=== PATIENT | male | born 1980 | race Caucasian/White ===

== ENCOUNTER 2016-07-04 17:57 | Emergency (ER) | payer SELFPAY ==
[~2016-07-04] VITALS: Ht 188 cm; Wt 86.2 kg
[2016-07-04] MEDS ORDERED: ONDANSETRON HCL/PF 4 MG/2 ML VIAL ONE (18:29)
[2016-07-04] MEDS ORDERED: IV SET PRIMARY 1 EA INFUS.SET MC ONE (18:29)
[2016-07-04] MEDS ORDERED: IV NS 0.9% 1,000 ML ONE (18:29)
[2016-07-04] MEDS ORDERED: ONDANSETRON HCL/PF 4 MG/2 ML VIAL IVP ONE (18:30)
[2016-07-04] MEDS ORDERED: IV NS 0.9% 1,000 ML BAG IV ONE (18:30)
[2016-07-04 18:34] LABS: BASOPHILS # (AUTO) 0.1 /CMM (0.0-0.2); BASOPHILS % (AUTO) 0.5 % (0.0-2.0); DIFF TOTAL % 100 %; EOSINOPHILS # (AUTO) 0.2 /CMM (0.0-0.7); EOSINOPHILS % (AUTO) 1.9 % (0.0-6.0); HEMATOCRIT 53 % (39-51); HEMOGLOBIN 17.8 g/dL (13.5-17.5); LYMPHOCYTES # (AUTO) 3.1 /CMM (0.8-4.8); LYMPHOCYTES % (AUTO) 27.2 % (20.0-44.0); MEAN CORPUSCULAR HEMOGLOBIN 31 PG (26.0-33.0); MEAN CORPUSCULAR HGB CONC 34 g/dl (31.0-36.0); MEAN CORPUSCULAR VOLUME 91 fL (80-96); MONOCYTES # (AUTO) 0.8 /CMM (0.1-1.30); MONOCYTES % (AUTO) 7.2 % (2.0-12.0); NEUTROPHILS # (AUTO) 7.1 /CMM (1.8-8.9); NEUTROPHILS % (AUTO) 63.2 % (43.0-81.0); PLATELET COUNT (AUTO) 274 /CMM (150-450); RED BLOOD CELL COUNT(AUTO) 5.77 MIL/uL (4.5-6.0); WHITE BLOOD COUNT (AUTO) 11.3 K/uL (4.3-11.0)
[2016-07-04 18:48] LABS: ALBUMIN 4.8 g/dL (3.4-5.0); BILIRUBIN,DIRECT 0.1 mg/dL (0.0-0.2); BILIRUBIN,TOTAL 0.7 mg/dL (0.2-1.0); CALCIUM, SERUM 9.1 mg/dL (8.5-10.1); CREATININE 1.3 mg/dL (0.6-1.3); INDIRECT BILIRUBIN 0.6 mg/dL (0.0-1.1); POTASSIUM 3.7 mmol/L (3.5-5.1); TOTAL PROTEIN, SERUM 8.5 g/dL (6.4-8.2)
[2016-07-04 18:51] LABS: CANNABINOID, URINE NEGATIVE (NEGATIVE); PHENCYCLIDINE SCREEN,URINE NEGATIVE (NEGATIVE)
[2016-07-04 19:15] LABS: BAND % (MANUAL) 2 % (0.0-5.0); BASOPHILS % (MANUAL) 0 % (0.0-2.0); EOSINOPHILS % (MANUAL) 0 % (0-4); LYMPHOCYTES % (MANUAL) 32 % (16-48)
[2016-07-04 19:16] LABS: PLATELET ESTIMATE ADEQUATE; RBC MORPHOLOGY COMMENT NORMAL RBC MORPH
[2016-07-04 19:27] VITALS: BP 132/76
== END 2016-07-04 19:28 | disposition home or self-care (01) ==
LOC: ER 17:59
DX: F10.129 Alcohol abuse with intoxication, unspecified (principal)
CPT/HCPCS: 36415; 80048; 80076; 80305; 83690; 85025; 96374; 99284; A4606; G0481; J2405; J7030; Z7610; G6040-TC

== ENCOUNTER 2018-06-10 14:06 | Emergency (ER) | payer OTHER ==
[~2018-06-10] VITALS: Ht 182.9 cm; Wt 92.5 kg
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
[2018-06-10] MEDS ORDERED: KETOROLAC TROMETHAMINE 15 MG/ML VIAL ONE (14:44)
[2018-06-10] MEDS: KETOROLAC TROMETHAMINE INJ 30 MG/ML VIAL IM ONE (14:51)
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
--- NOTE | 2018-06-10 15:12 | NUR ---
ASTER, EMT AT BEDSIDE FOR WOUND CARE
--- NOTE | 2018-06-10 15:14 | NUR ---
PHLEB AT BEDSIDE
[2018-06-10] MEDS ORDERED: SILVER SULFADIAZINE CREAM 25 GM TUBE ONE (15:15)
[2018-06-10 15:23] LABS: BASOPHILS # (AUTO) 0.1 /CMM (0.0-0.2); BASOPHILS % (AUTO) 1.5 % (0.0-2.0); EOSINOPHILS % (AUTO) 4.2 % (0.0-6.0); HEMATOCRIT 54 % (39-51); HEMOGLOBIN 18.3 g/dL (13.5-17.5); MEAN CORPUSCULAR HGB CONC 34 g/dl (31.0-36.0); MEAN CORPUSCULAR VOLUME 95 fL (80-96); MONOCYTES # (AUTO) 0.5 /CMM (0.1-1.30); MONOCYTES % (AUTO) 6.1 % (2.0-12.0); NEUTROPHILS # (AUTO) 4.7 /CMM (1.8-8.9); NEUTROPHILS % (AUTO) 54.2 % (43.0-81.0); PLATELET COUNT (AUTO) 265 /CMM (150-450); WHITE BLOOD COUNT (AUTO) 8.7 K/uL (4.3-11.0)
[2018-06-10 15:41] LABS: CALCIUM, SERUM 9.2 mg/dL (8.5-10.1); CREATININE 0.9 mg/dL (0.6-1.3); POTASSIUM 4.1 mmol/L (3.5-5.1)
--- NOTE | 2018-06-10 15:42 | NUR ---
Dawit hines in [facility] - 06/10/18 at 1548 by POL[employer] DATA PROCESSING CONSULTANT ETA 45MIN FOR PSYCH EVAL.
--- NOTE | 2018-06-10 15:44 | NUR ---
JAILYN MANSFIELD AT BEDSIDE FOR STRAIGHT CATH. PT REQUESTED TO NOT HAVE FEMALE NURSE
[2018-06-10 15:59] LABS: ALBUMIN 5.1 g/dL (3.4-5.0); BILIRUBIN,DIRECT 0.1 mg/dL (0.0-0.2); BILIRUBIN,TOTAL 0.5 mg/dL (0.2-1.0); TOTAL PROTEIN, SERUM 8.9 g/dL (6.4-8.2)
--- NOTE | 2018-06-10 16:03 | NUR ---
RESTRAINTS D/C'D. CMS INTACT
--- NOTE | 2018-06-10 17:07 | NUR ---
IV removed. Catheter intact and site benign. Pressure and 4x4 applied to site. No bleeding noted. Patient discharged to home in stable condition. Written and verbal after care instructions given. PT REFUSED TO SIGN DISCHARGE PAPERS.
[2018-06-10 17:22] VITALS: BP 130/78
== END 2018-06-10 17:13 | disposition home or self-care (01) ==
LOC: ER 14:08
DX: T23.101A Burn of first degree of right hand, unspecified site, initial encounter (principal); T22.10XA Burn of first degree of shoulder and upper limb, except wrist and hand, unspecified site, initial encounter; F10.129 Alcohol abuse with intoxication, unspecified; X08.8XXA Exposure to other specified smoke, fire and flames, initial encounter; Y93.89 Activity, other specified; Y92.89 Other specified places as the place of occurrence of the external cause; Y99.8 Other external cause status; Y90.8 Blood alcohol level of 240 mg/100 ml or more
CPT/HCPCS: 36415; 80048-TC; 80076-TC; 80305; 85025-TC; A6403; G0480; J1885